=== PATIENT | female | born 1955 | race Caucasian/White ===

== ENCOUNTER 2023-07-04 20:30 | Observation (INO) | payer OTHER, SELFPAY ==
[2023-07-04] VITALS (24 sets, daily range): BP systolic 144–180; BP diastolic 82–106; PULSE 80–106; RESP 18–25; TEMP 36.1–36.8; O2SAT 89–100; BMI 25.8
--- NOTE | 2023-07-04 20:51 | XR_ITS ---
The [address] [address] Patient Name: CHAVEZ SHAIKH MRN: [id number] date: 1955 Sex: F Assigned Patient Location: ER Current Patient Location: ER Accession/Order Number: [id number] Exam Date: 07/04/2023 21:02 Report Date: 07/04/2023 21:14 At the request of: MIRTHA CARVAJAL Procedure: XR chest 1V EXAM: XR chest 1V HISTORY: Shortness of breath for one day. COMPARISON: None. TECHNIQUE: AP upright portable chest x-ray FINDINGS: The heart is not enlarged and the vasculature is not distended. There is slight haziness at the right lung base suggest a very small amount of atelectasis or infiltrate. The right upper and the left lung are clear, there is no evidence of an effusion or pneumothorax. The osseous structures are grossly intact. XR/XR chest 1V IMPRESSION: Slight haziness is seen at the right lung base. This may be chronic in nature or indicative of very early atelectasis or infiltrate. There is no other evidence of a focal infiltrate or cardiac decompensation. Direct comparison with a previous study is recommended to verify stability of these findings. A follow-up study after appropriate therapy is also recommended. Electronically authenticated by: RHETT TREVINO Date: 07/04/2023 21:14
--- NOTE | 2023-07-04 20:51 | ECG_ITS ---
The [facility] Test Date: 2023-07-04 Pat Name: CHAVEZ SHAIKH Department: Room: - Gender: Female Director Government: : 1955 Requested By: HARLEEN DELGADILLO Order Number: [id number] Reading MD: LINDA BULL Measurements Intervals [place] Rate: 85 P: 90 SC: 180 QRS: -6 QRSD: 82 T: 69 QT: 364 QTc: 406 Interpretive Statements 1100 Sinus rhythm 1470 with occasional supraventricular premature complexes 2420 RSR (QR) in lead V1/V2, consistent with right ventricular conduction delay 0102 ARTIFACT PRESENT 9140 abnormal rhythm ECG No previous ECG available for comparison Electronically Signed On 07-05-2023 7:11:35 EST by LINDA BULL
--- NOTE | 2023-07-04 20:54 | ED_ITS ---
HPI - SOB/Dyspnea General Chief Complaint: Shortness of Breath/Dyspnea Stated Complaint: shortness of breath Time Seen by Provider: 07/04/23 20:47 Source: patient Mode of arrival: Wheelchair History of Present Illness HPI Narrative: Patient is a very pleasant 68-year-old female who presents to the emergency department for the evaluation of increasing shortness of breath over the last several hours. states that last week she had an episode where she was feeling short of breath and seemed as though she may be coming down with a cold, she had an episode of emesis and felt better. She has had no fevers, chills, chest pain. No persistent vomiting today. She is noted to be borderline hypoxic and wheezing with accessory muscle use at initial interview. She states she smokes half a pack of cigarettes daily, no history of heart or lung problems, she takes no medications daily. Related Data Previous Rx's Medication Instructions Recorded cefdinir 300 mg capsule 600 mg (2 x 300 mg) PO DAILY #20 07/05/23 caps prednisone 20 mg tablet 60 mg (3 x 20 mg) PO DAILY #12 tabs 07/05/23 Allergies Allergy/AdvReac Type Severity Reaction Status Date / Time No Known Drug Allergies Allergy Verified 07/04/23 20:44 Review of Systems ROS Constitutional Denies: fever or chills Ears, nose, mouth, and throat Denies: throat pain or nasal congestion Cardiovascular Denies: chest pain Respiratory Reports: shortness of breath and cough; Denies: change in phlegm color or coughing up blood Gastrointestinal Reports: vomiting; Denies: nausea or diarrhea Musculoskeletal Denies: back pain Integumentary/Breast Denies: rash Neurological Denies: headache Hematologic/Lymphatic Denies: easy bruising or easy bleeding PFSH PFS Medical History (Updated 07/04/23 @ 23:57 by Mecca Jang) Cataracts, bilateral ?H26.9 - Unspecified cataract (ICD-10) Family History (Updated 07/04/23 @ 23:49 by Mecca Jang) Father Family history of diabetes mellitus Other Family history of CHF (congestive heart failure) Family history of COPD (chronic obstructive pulmonary disease) Social History (Updated 07/04/23 @ 23:51 by Mecca Jang) Within the past year, how often did you have a drink containing alcohol: monthly or less Within the past year, how many standard drinks containing alcohol did you have on a typical day: 1 or 2 Within the past year, how often did you have six or more drinks on one occasion: never Total score: 0 Score interpretation: A score less than 3 is consistent with normal alcohol consumption. 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 Highest level of school completed/degree received: high school graduate Are you now , , , , never or living with a partner: In a typical week, how many times do you talk on the telephone with family, friends, or neighbors: 3 or more times per week How often do you get together with friends or relatives: 3 or more times per week How often do you attend jew or samaritan services: 1-3 times per year Little interest or pleasure in doing things: not at all Feeling down, depressed, or hopeless: not at all Feel stressed/tense/nervous/anxious/difficulty sleeping: not at all Do you think of yourself as: straight/heterosexual Gender Identity: female Exam Narrative Exam Narrative: Gen.: Awake, alert, in no distress Head: Normocephalic, atraumatic ENT: Moist mucous membranes Respiratory: No respiratory distress, Able to speak in full sentences, diminished lung sounds globally with expiratory wheezing and retractions noted Cardio: Regular rate and rhythm Extremities: Moves extremities equally, no Pedal edema Psych: Normal mood and affect Neuro: No focal neuro deficit Skin: Warm, dry, intact Constitutional Vital Signs, click to edit/add: Last Vital Signs Temp 97.6 F 07/05/23 05:00 Pulse 105 H 07/05/23 10:40 Resp 16 07/05/23 10:40 BP 143/74 H 07/05/23 05:00 Pulse Ox 93 L 07/05/23 11:01 O2 Del Method Room Air 07/05/23 11:01 O2 Flow Rate 0.5 07/05/23 10:01 Course Vital Signs Vital signs: Vital Signs Temperature 97 F L 07/04/23 20:36 Pulse Rate 91 H 07/04/23 20:36 Respiratory Rate 20 07/04/23 20:36 Pulse Oximetry 92 L 07/04/23 20:36 Oxygen Delivery Method Room Air 07/04/23 20:36 Temperature 97.6 F 07/05/23 05:00 Pulse Rate 105 H 07/05/23 10:40 Respiratory Rate 16 07/05/23 10:40 Blood Pressure 143/74 H 07/05/23 05:00 Pulse Oximetry 93 L 07/05/23 11:01 Oxygen Delivery Method Room Air 07/05/23 11:01 Oxygen Delivery Flow Rate 0.5 07/05/23 10:01 MDM - SOB/Dyspnea MDM Narrative Medical decision making narrative: Given breathing treatments with improvement and was placed on oxygen by nasal cannula just for comfort while in the ER. She was given IV fluids and Solu- Medrol. Lab studies are within normal limits including D-dimer, BNP and troponin. Chest x-ray with questionable right lower lobe atelectasis versus early infiltrate. Patient with no complaints of chest pain in the ER. She was taken off of oxygen by nasal cannula to evaluate her oxygen saturation. She would like to try to go home if possible. After ambulating down the ham, patient's oxygen levels dropped to 88 to 89% on room air and she became tachycardic and winded. I discussed with her that she may not be successful with home treatment given that she is becoming hypoxic with ambulation. She is agreeable to staying. She is placed back on a nasal cannula and blood cultures, RSV were ordered at the request of hospitalist service. Patient treated with IV azithromycin and Rocephin. She will be admitted to [facility], with telemetry for observation overnight. Medical Records Attestation: I reviewed the patient's medical records. Lab Data Attestation: I reviewed the patient's lab results. Labs: Lab Results 07/04/23 07/04/23 Range/Units 21:00 21:24 WBC 8.6 (4.0-11.0) 10^3/uL RBC 4.52 (4.20-5.40) 10^6/uL Hgb 14.3 (12.0-16.0) g/dL Hct 43.3 (36.0-48.0) % MCV 95.8 (81.0-99.0) fL MCH 31.6 (26.7-34.0) pg MCHC 33.0 (29.9-35.2) g/dL RDW 12.5 (11.0-15.0) % Plt Count 257 (150-450) 10^3/uL MPV 10.3 (9.5-13.5) fL Neut % (Auto) 65.9 (43.0-75.0) % Lymph % (Auto) 23.0 (20.5-60.0) % Hayes % (Auto) 7.1 (1.7-12.0) % Eos % (Auto) 2.7 (0.9-7.0) % Baso % (Auto) 1.2 (0.2-2.0) % Neut # (Auto) 5.7 (1.4-6.5) 10^3/uL Lymph # (Auto) 2.0 (1.2-3.8) 10^3/uL Hayes # (Auto) 0.6 (0.3-0.8) 10^3/uL Eos # (Auto) 0.2 (0.0-0.7) 10^3/uL Baso # (Auto) 0.1 (0.0-0.1) 10^3/uL Abs Immat Gran (auto) 0.01 (0.00-0.03) 10^3/uL Imm/Tot Granulo (auto) 0.1 (0.0-0.5) % PT 9.7 (9.0-11.6) sec INR <0.93 APTT 25.6 (22.3-36.2) sec D-Dimer 0.23 (<=0.59) mg/L FEU VBG pH 7.351 (7.330-7.430) VBG pCO2 51.2 (40.0-52.0) mmHg Sodium 136 (136-145) mmol/L Potassium 4.0 (3.5-5.1) mmol/L Chloride 102 (98-107) mmol/L Carbon Dioxide 29.0 (21.0-32.0) mmol/L Anion Gap 9.0 BUN 14.0 (7.0-18.0) mg/dL Creatinine 0.66 (0.55-1.02) mg/dL Est GFR ( Amer) >60 (>=60) Est GFR (Non-Af Amer) >60 (>=60) BUN/Creatinine Ratio 21.2 Glucose 124 H (74-106) mg/dL Calcium 9.5 (8.5-10.1) mg/dL Total Bilirubin 0.4 (0.2-1.0) mg/dL AST 12 L (15-37) U/L ALT 16 (14-59) U/L Alkaline Phosphatase 121 H (46-116) U/L Troponin I High Sens 5.3 (4.0-51.3) pg/mL NT-Pro-B Natriuret Pep 84.0 (<=900.0) pg/mL Total Protein 7.1 (6.4-8.2) g/dL Albumin 3.6 (3.4-5.0) g/dL Globulin 3.5 g/dL Albumin/Globulin Ratio 1.0 Influenza Type A Ag Negative Influenza Type B Ag Negative RSV Antigen Not detected (NOT DETECTE) SARS-CoV-2 Ag (CV2AG) Negative (NEGATIVE) Imaging Data Chest x-ray: Attestation: I have reviewed the pertinent imaging results. Radiologist's impression: Procedure: XR chest 1V EXAM: XR chest 1V HISTORY: Shortness of breath for one day. COMPARISON: None. TECHNIQUE: AP upright portable chest x-ray FINDINGS: The heart is not enlarged and the vasculature is not distended. There is slight haziness at the right lung base suggest a very small amount of atelectasis or infiltrate. The right upper and the left lung are clear, there is no evidence of an effusion or pneumothorax. The osseous structures are grossly intact. IMPRESSION: Slight haziness is seen at the right lung base. This may be chronic in nature or indicative of very early atelectasis or infiltrate. There is no other evidence of a focal infiltrate or cardiac decompensation. Direct comparison with a previous study is recommended to verify stability of these findings. A follow-up study after appropriate therapy is also recommended. Electronically authenticated by: RHETT TREVINO Date: 07/04/2023 21:14 ECG Data Attestation: I personally reviewed and interpreted this ECG as follows: (Normal sinus rhythm at a rate of 85 with occasional PVC, no acute ST elevation. EKG reviewed by attending physician. Artifact noted.) ECG interpretation date: 07/04/23 Discharge Plan Discharge Chief Complaint: Shortness of Breath/Dyspnea Clinical Impression: Acute infective exacerbation of chronic obstructive airway disease, Community acquired pneumonia, Hypoxia Patient Disposition: Admitted as Observation Time of Disposition Decision: 22:22 Condition: Good Discharge Date/Time: 07/04/23 23:49
[2023-07-04] MEDS: IPRATROPIUM/ALBUTEROL SULFATE 3 ML AMPUL.NEB IH (21:05)
[2023-07-04] MEDS: ALBUTEROL SULFATE 2.5 MG/3 ML VIAL NEB IH (21:05)
[2023-07-04] MEDS: METHYLPREDNISOLONE SOD SUCC PF 125 MG/2 ML VIAL IVP (21:10)
[2023-07-04 21:17] LABS: PCO2 VBG 51.2 mmHg (40.0-52.0); pH VBG 7.351 (7.330-7.430)
[2023-07-04 21:18] LABS: Basophils Absolute Auto 0.1 10^3/uL (0.0-0.1); Basophils Percent Auto 1.2 % (0.2-2.0); Eosinophils Absolute Auto 0.2 10^3/uL (0.0-0.7); Eosinophils Percent Auto 2.7 % (0.9-7.0); Hematocrit 43.3 % (36.0-48.0); Hemoglobin 14.3 g/dL (12.0-16.0); Immature Granulocytes Abs Auto 0.01 10^3/uL (0.00-0.03); Immature Granulocytes Pct Auto 0.1 % (0.0-0.5); Mean Corpuscular Hemoglobin 31.6 pg (26.7-34.0); Mean Corpuscular Volume 95.8 fL (81.0-99.0); Mean Platelet Volume 10.3 fL (9.5-13.5); Monocytes Absolute Auto 0.6 10^3/uL (0.3-0.8); Monocytes Percent Auto 7.1 % (1.7-12.0); Neutrophils Absolute Auto 5.7 10^3/uL (1.4-6.5); Neutrophils Percent Auto 65.9 % (43.0-75.0); Platelet Count 257 10^3/uL (150-450); Red Blood Count 4.52 10^6/uL (4.20-5.40); Red Cell Distribution Width 12.5 % (11.0-15.0); White Blood Count 8.6 10^3/uL (4.0-11.0)
[2023-07-04 21:34] LABS: D Dimer 0.23 mg/L FEU (<=0.59); Partial Thromboplastin Time 25.6 sec (22.3-36.2); Prothrombin Time 9.7 sec (9.0-11.6)
[2023-07-04 21:35] LABS: Alanine Aminotransferase 16 U/L (14-59); Albumin Level 3.6 g/dL (3.4-5.0); Alkaline Phosphatase 121 U/L (46-116); Aspartate Amino Transferase 12 U/L (15-37); BUN Creatinine Ratio 21.2; Bilirubin Total 0.4 mg/dL (0.2-1.0); Calcium 9.5 mg/dL (8.5-10.1); Chloride 102 mmol/L (98-107); Estimated GFR (African America >60 (>=60); Estimated GFR (Non-African Ame >60 (>=60); Globulin 3.5 g/dL; Glucose 124 mg/dL (74-106); INR <0.93; Sodium 136 mmol/L (136-145); Total Protein 7.1 g/dL (6.4-8.2)
[2023-07-04 21:41] LABS: Troponin I High Sensitivity 5.3 pg/mL (4.0-51.3)
[2023-07-04 21:46] LABS: Influenza Virus A Antigen Negative; Influenza Virus B Antigen Negative; Internal Control Within Normal Limits; SARS-CoV-2 Ag NEGATIVE (NEGATIVE)
[2023-07-04 22:39] LABS: Internal Control Within Normal Limits; Respiratory Syncytial Virus Not Detected (NOT DETECTE)
[2023-07-04] MEDS: CEFTRIAXONE 1,000 MG in 0.9 % SODIUM CHLORIDE 50 ML 100 MG IV (22:52)
[2023-07-04] MEDS: AZITHROMYCIN 500 MG in 0.9 % SODIUM CHLORIDE 250 ML 250 MG IV (23:23)
[2023-07-05] VITALS (15 sets, daily range): BP systolic 143; BP diastolic 74; PULSE 94–126; RESP 16–18; TEMP 36.4; O2SAT 93–97
[2023-07-05] MEDS: IPRATROPIUM/ALBUTEROL SULFATE 3 ML AMPUL.NEB IH ×4 (00:23→10:38)
[2023-07-05 00:47] LABS: Glucometer 155 mg/dL (74-106)
--- NOTE | 2023-07-05 04:00 | RESP.RT ---
decreased down to 1L
[2023-07-05 04:30] LABS: Hematocrit 42.1 % (36.0-48.0); Hemoglobin 13.7 g/dL (12.0-16.0); Mean Corpuscular HGB Conc 32.5 g/dL (29.9-35.2); Mean Corpuscular Volume 95.2 fL (81.0-99.0); Mean Platelet Volume 10.1 fL (9.5-13.5); PCO2 VBG 48.9 mmHg (40.0-52.0); Platelet Count 252 10^3/uL (150-450); Red Blood Count 4.42 10^6/uL (4.20-5.40); Red Cell Distribution Width 12.6 % (11.0-15.0); White Blood Count 9.9 10^3/uL (4.0-11.0); pH VBG 7.344 (7.330-7.430)
[2023-07-05 04:39] LABS: Anion Gap 13.3; BUN Creatinine Ratio 11.5; Calcium 9.4 mg/dL (8.5-10.1); Carbon Dioxide 26.3 mmol/L (21.0-32.0); Chloride 101 mmol/L (98-107); Estimated GFR (African America >60 (>=60); Estimated GFR (Non-African Ame 53 (>=60); Glucose 206 mg/dL (74-106); Potassium 3.6 mmol/L (3.5-5.1); Sodium 137 mmol/L (136-145)
[2023-07-05] MEDS: METHYLPREDNISOLONE SOD SUCC PF 40 MG/ML VIAL IVP (05:07)
--- NOTE | 2023-07-05 09:00 | CM.NOTE ---
Rounds made with Dr. Pepe, will attempt to wean off oxygen today. Pt up ambulatory in room. No discharge needs identified. Pt lives at home with , no devices used with ambulation.
--- NOTE | 2023-07-05 09:54 | PM.HP ---
H&P: HPI History of Present Illness Chief complaint: shortness of breath Narrative: Patient presented to the emergency with increasing shortness of breath. Found to have acute exacerbation of COPD right lower lobe pneumonia. Initially hypoxic in ER with ambulation. She is improved this morning. Review of Systems ROS Status of ROS 10 or more systems reviewed and unremarkable except as noted in history and below [facility] Medical History (Updated 07/04/23 @ 23:57 by Mecca Jang) Cataracts, bilateral ?H26.9 - Unspecified cataract (ICD-10) Family History (Updated 07/04/23 @ 23:49 by Mecca Jang) Father Family history of diabetes mellitus Other Family history of CHF (congestive heart failure) Family history of COPD (chronic obstructive pulmonary disease) Social History (Updated 07/04/23 @ 23:51 by Mecca Jang) Within the past year, how often did you have a drink containing alcohol: monthly or less Within the past year, how many standard drinks containing alcohol did you have on a typical day: 1 or 2 Within the past year, how often did you have six or more drinks on one occasion: never Total score: 0 Score interpretation: A score less than 3 is consistent with normal alcohol consumption. 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 Highest level of school completed/degree received: high school graduate Are you now , , , , never or living with a partner: In a typical week, how many times do you talk on the telephone with family, friends, or neighbors: 3 or more times per week How often do you get together with friends or relatives: 3 or more times per week How often do you attend jain or druze services: 1-3 times per year Little interest or pleasure in doing things: not at all Feeling down, depressed, or hopeless: not at all Feel stressed/tense/nervous/anxious/difficulty sleeping: not at all Do you think of yourself as: straight/heterosexual Gender Identity: female Meds Home Medications and Allergies Home Medications Medication Instructions Recorded Confirmed Type cefdinir 300 mg capsule 600 mg (2 x 300 mg) PO DAILY #20 07/05/23 Rx caps prednisone 20 mg tablet 60 mg (3 x 20 mg) PO DAILY #12 tabs 07/05/23 Rx Allergies Allergy/AdvReac Type Severity Reaction Status Date / Time No Known Drug Allergies Allergy Verified 07/04/23 20:44 Exam Constitutional Vital Signs, click to edit/add: Last Vital Signs Temp 97.6 F 07/05/23 05:00 Pulse 126 H 07/05/23 08:00 Resp 16 07/05/23 08:00 BP 143/74 H 07/05/23 05:00 Pulse Ox 97 07/05/23 07:22 O2 Del Method Nasal Cannula 07/05/23 07:22 O2 Flow Rate 0.5 07/05/23 07:22 Documenting provider has reviewed patient's vital signs: yes Common normals: no apparent distress Chest Common normals: inspection of chest normal Respiratory Common normals: normal respiratory effort Auscultation: rhonchi Cardio Common normals: regular rate and regular rhythm GI Common normals: Normal to inspection, nondistended, normoactive bowel sounds present Results Labs Labs: Short CBC 07/04/23 07/05/23 Range/Units 21:00 04:20 WBC 8.6 9.9 (4.0-11.0) 10^3/uL Hgb 14.3 13.7 (12.0-16.0) g/dL Hct 43.3 42.1 (36.0-48.0) % Plt Count 257 252 (150-450) 10^3/uL BMP 07/04/23 07/05/23 21:00 04:20 Sodium 136 137 Potassium 4.0 3.6 Chloride 102 101 Carbon Dioxide 29.0 26.3 BUN 14.0 12.0 Creatinine 0.66 1.04 H Glucose 124 H 206 H Calcium 9.5 9.4 Liver Function 07/04/23 Range/Units 21:00 Total Bilirubin 0.4 (0.2-1.0) mg/dL AST 12 L (15-37) U/L ALT 16 (14-59) U/L Alkaline Phosphatase 121 H (46-116) U/L Albumin 3.6 (3.4-5.0) g/dL ABG ABG results: 07/04/23 07/05/23 21:00 04:20 VBG pH 7.351 7.344 VBG pCO2 51.2 48.9 Assessment and Plan Assessment and Plan (1) Acute infective exacerbation of chronic obstructive airway disease: (2) Community acquired pneumonia: Plan Sinus tachycardia, respiratory distress, acute hypoxia secondary to right lower lobe pneumonia with community-acquired pneumonia causing an acute exacerbation of COPD. She is able to be weaned off her supplemental oxygen at rest. She was she she does with ambulation. She does feel much improved with breathing treatments and IV medications so far. If she is improved later on this morning with no further need for supplemental oxygen with or without ambulation she will be discharged home in improving condition. Medications see list. Follow-up with your PCP within the next week.
--- NOTE | 2023-07-06 14:03 | CM.DCFOLLOWU ---
Person spoke with:patient How are you feeling? well How is your pain? no pain Did you understand your discharge instructions? yes Do you have any questions about your discharge instructions? no Were you given any prescriptions at discharge? yes Were you able to get your prescriptions filled? yes Do you understand how to take your medications as ordered? yes Do you have any questions about your follow up appointment and do you plan to keep your follow up appointment? no questions, follow up with Per was today and all is good Is there anything else that you would like to discuss? no Questions/Comments/Concerns/Other:
== END 2023-07-05 11:28 | disposition home or self-care (01) ==
LOC: ER 22:26 → MS 23:44
PROVIDERS: Physician Assistant; Registered Nurse; Admitting Provider Family Medicine; Emergency Provider Internal Medicine; PCP Family Medicine; Visit Provider Family Medicine
DX: J18.9 Pneumonia, unspecified organism (principal); J44.0 Chronic obstructive pulmonary disease with (acute) lower respiratory infection; J44.1 Chronic obstructive pulmonary disease with (acute) exacerbation; R09.02 Hypoxemia; F17.210 Nicotine dependence, cigarettes, uncomplicated; Z20.822 Contact with and (suspected) exposure to COVID-19; R00.0 Tachycardia, unspecified; R06.03 Acute respiratory distress
CPT/HCPCS: 36415; 71045; 80048; 80053; 82800; 83880; 84484; 85025; 85027; 85378; 85610; 85730; 87040; 87420; 87635; 87798; 87804; 87811; 93005; 94640; 94667; 94668; 94761; 96365; 96375; 96376; 99285; G0378; J0456; J0696; J2920; J2930

== ENCOUNTER 2024-07-27 11:42 | Emergency (ER) | payer MEDICARE, SELFPAY ==
[2024-07-27 11:45] VITALS: BP 174/95; PULSE 100; TEMP 36.6; O2SAT 92; BMI 25.1
--- NOTE | 2024-07-27 11:54 | XR_ITS ---
The [address] [address] Patient Name: CHAVEZ SHAIKH MRN: [id number] date: 1955 Sex: F Assigned Patient Location: ER Current Patient Location: ER Accession/Order Number: [id number] Exam Date: 07/27/2024 12:00 Report Date: 07/27/2024 12:48 At the request of: ISABELLA ARROYO Procedure: XR chest 2V EXAMINATION: XR chest 2V HISTORY: sob COMPARISON: 07/04/2023 TECHNIQUE: PA and lateral FINDINGS: LUNGS: No significant pulmonary parenchymal abnormalities. VASCULATURE: No increased pulmonary vasculature. PLEURA: No pneumothorax, effusion, or pleural thickening. CARDIAC: No cardiomegaly or cardiac silhouette abnormality. MEDIASTINUM: No visible mass or adenopathy. BONES: No fracture or visible bone lesion. OTHER: Negative. XR/XR chest 2V IMPRESSION: No acute cardiopulmonary process Electronically authenticated by: AISHA GARNER Date: 07/27/2024 12:48
[2024-07-27 11:57] VITALS: O2SAT 95
--- OUTSIDE RECORDS SUMMARY | 2024-07-27 12:00 | XMS_ITS | CCD ---
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; Translations: [OTH MOLECULAR SPECTROSCOPIST CURRENT DRUG THERAPY] Onset: 06-08-2021 Episodic Other aftercare (4 sources) Long-term current use of drug therapy; Translations: [Other care home (current) drug therapy] Onset: 03-22-2024 03-22-2024 Episodic Other nutritional; endocrine; and metabolic disorders (1 source) Overweight; Translations: [OVERWEIGHT] Onset: 06-08-2021 Episodic Other nutritional; endocrine; and metabolic disorders (1 source) Body mass index (BMI) 25.0-25.9, adult; Translations: [BODY MASS INDEX BMI 25.0-25.9 ADULT] Onset: 06-08-2021 Episodic Other screening for suspected conditions (not mental disorders or infectious disease) (4 sources) Patient encounter status; Translations: [Encounter for screening for lipoid disorders] Onset: 03-22-2024 03-22-2024 Episodic Past or Other Problems Problem Classification Problem Date Documented Da te Episodic/Chronic Mood disorders (2 sources) Mood disorders Onset: 03-21-2024 03-22-2024 Pneumonia (except that caused by tuberculosis or sexually transmitted disease) (3 sources) Pneumonia; Translations: [Pneumonia, unspecified organism] Onset: 07-06-2023 Resolved: 03-22-2024 03-22-2024 Episodic Residual codes; unclassified (3 sources) Tobacco user; Translations: [Tobacco use] Onset: 07-06-2023 07-06-2023 Episodic Results Test Name Value Interpretation Reference Range Facil ity CBC AUTO DIFFon 06-03-2021 BASO # 0.1 103/ul Normal 0.0-0.1 [facility] Comment on above: Performed By: #### C BC #### [facility] [address] [address] [address] Lenard Wing Basophils/100 WBC (Bld) 1.5 % Normal 0.2-2.0 [facility] Comment on above: Performed By: #### C BC #### [facility] [address] [place] [address] Dr. Lenard Wing EO # 0.2 103/ul Normal 0.0-0.7 [facility] Comment on above: Performed By: #### C BC #### [facility] [address] [place] [address] Dr. Lenard Wing Eosinophils/100 WBC (Bld) 2.9 % Normal 0.9-7.0 [facility] Comment on above: Performed By: #### C BC #### [facility] [address] [place] [address] Dr. Lenard Wing Erythrocyte distribution width (RBC) [Ratio] 13.2 % Normal 11.0-15.0 [facility] Comment on above: Performed By: #### C BC #### [facility] [address] [place] [address] Dr. Lenard Wing Hematocrit (Bld) [Volume fraction] 42.9 % Normal 36.0-48.0 [facility] Comment on above: Performed By: #### C BC #### [facility] [address] [place] [address] Dr. Lenard Wing Hemoglobin (Bld) [Mass/Vol] 14.0 g/dL Normal 12.0-16.0 [facility] Comment on above: Performed By: #### C BC #### [facility] [address] [place] [address] Dr. Lenard Wing IG # 0.02 10e3/ul Normal 0.00-0.03 [facility] Comment on above: Performed By: #### C BC #### [facility] [address] [place] [address] Dr. Lenard Wing IG % 0.3 % Normal 0.0-0.5 [facility] Comment on above: Performed By: #### C BC #### [facility] [address] [place] [address] Dr. Lenard Wing LYMPH # 2.0 103/ul Normal 1.2-3.8 [facility] Comment on above: Performed By: #### C BC #### [facility] [address] [place] [address] Dr. Lenard Wing Lymphocytes/100 WBC (Bld) 26.7 % Normal 20.5-60.0 [facility] Comment on above: Performed By: #### C BC #### [facility] [address] [place] [address] Dr. Lenard Wing MANUAL DIFF REQ NO Normal [facility] Comment on above: Performed By: #### C BC #### [facility] [address] [place] [address] Dr. Lenard Wing MCH (RBC) [Entitic mass] 31.3 pg Normal 26.7-34.0 [facility] Comment on above: Performed By: #### C BC #### [facility] [address] [place] [address] Dr. Lenard Wing MCHC (RBC) [Mass/Vol] 32.6 g/dL Normal 29.9-35.2 [facility] Comment on above: Performed By: #### C BC #### [facility] [address] [place] [address] Dr. Lenard Wing MCV (RBC) [Entitic vol] 96.0 fL Normal 81.0-99.0 [facility] Comment on above: Performed By: #### C BC #### [facility] [address] [place] [address] Dr. Lenard Wing MONO # 0.5 103/ul Normal 0.3-0.8 [facility] Comment on above: Performed By: #### C BC #### [facility] [address] [address] [address] Lenard Wing Monocytes/100 WBC (Bld) 6.8 % Normal 1.7-12.0 [facility] Comment on above: Performed By: #### C BC #### [facility] [address] [address] [address] Lenard Wing NEUT # 4.7 103/ul Normal 1.4-6.5 [facility] Comment on above: Performed By: #### C BC #### [facility] [address] [place] [address] Dr. Lenard Wing Neutrophils/100 WBC (Bld) 61.8 % Normal 43.0-75.0 [facility] Comment on above: Performed By: #### C BC #### [facility] [address] [place] [address] Dr. Lenard Wing Platelet mean volume (Bld) [Entitic vol] 10.9 fL Normal 9.5-13.5 [facility] Comment on above: Performed By: #### C BC #### [facility] [address] [place] [address] Dr. Lenard Wing PLT 253 103/ul Normal 150-450 [facility] Comment on above: Performed By: #### C BC #### [facility] [address] [place] [address] Dr. Lenard Wing RBC 4.47 106/ul Normal 4.20-5.40 [facility] Comment on above: Performed By: #### C BC #### [facility] [address] [place] [address] Dr. Lenard Wing WBC 7.5 103/ul Normal 4.0-11.0 [facility] Comment on above: Performed By: #### C BC #### [facility] [address] [place] [address] Dr. Lenard Wing LIPID PROFILEon 06-03-2021 CHOL-HDL RATIO NORM SEE BELOW Normal [facility] Comment on above: Result Comment: 3.3 - 4.4 LOW RISK 4.4 - 7.1 AVERAGE RISK 7.1 - 11.0 MODERATE RISK >11.0 HIGH RISK Performed By: #### T SH, LIVER, BMP, LIPID #### [facility] [address] [address] [address] Lenard Wing Cholesterol [Mass/Vol] 138 mg/dL Normal <=200 [facility] Comment on above: Performed By: #### T SH, LIVER, BMP, LIPID #### [facility] [address] [address] [address] Lenard Wing Cholesterol in HDL [Mass/Vol] 99 mg/dL Normal [facility] Comment on above: Performed By: #### T SH, LIVER, BMP, LIPID #### [facility] [address] [place] [address] Dr. Lenard Wing Cholesterol in LDL [Mass/Vol] 33.6 mg/dL Normal [facility] Comment on above: Performed By: #### T SH, LIVER, BMP, LIPID #### [facility] [address] [address] [address] Lenard Wing Cholesterol.total/C holesterol in HDL [Mass ratio] 1.4 {ratio} Normal [facility] Comment on above: Performed By: #### T SH, LIVER, BMP, LIPID #### [facility] [address] [address] [address] Lenard Wing HDL NORMAL > or = 60 mg/dl - LO W CARDIOVASCULAR RISK <40 mg/dl - HIGH CARDIOVASCULAR RISK Normal [facility] Comment on above: Performed By: #### T SH, LIVER, BMP, LIPID #### [facility] [address] [place] [address] Dr. Lenard Wing LDL CALC NORMAL SEE BELOW Normal [facility] Comment on above: Result Comment: <100 mg/dl OPTIMAL 100 - 129 mg/dl NEAR OR ABOVE OPTIMAL 130 - 159 mg/dl BORDERLINE HIGH 160 - 189 mg/dl HIGH >190 mg/dl VERY HIGH Performed By: #### T SH, LIVER, BMP, LIPID #### [facility] [address] [address] [address] Lenard Wing Triglyceride [Mass/Vol] 27 mg/dL Normal <=150 [facility] Comment on above: Performed By: #### T SH, LIVER, BMP, LIPID #### [facility] [address] [address] [address] Lenard Wing VLDL CALC 5.4 mg/dL Normal [facility] Comment on above: Performed By: #### T SH, LIVER, BMP, LIPID #### [facility] [address] [address] [address] Lenard Wing LIVER PROFILEon 06-03-2021 Albumin [Mass/Vol] 3.6 g/dL Normal 3.5-5.0 [facility] Comment on above: Performed By: #### T SH, LIVER, BMP, LIPID #### [facility] [address] [place] [address] Dr. Lenard Wing Albumin/Globulin [Mass ratio] 1.2 {ratio} Normal [facility] Comment on above: Performed By: #### T SH, LIVER, BMP, LIPID #### [facility] [address] [place] [address] Dr. Lenard Wing ALP [Catalytic activity/Vol] 105 U/L Normal 38-126 [facility] Comment on above: Performed By: #### T SH, LIVER, BMP, LIPID #### [facility] [address] [place] [address] Dr. Lenard Wing ALT [Catalytic activity/Vol] 14 U/L Normal 9-52 [facility] Comment on above: Performed By: #### T SH, LIVER, BMP, LIPID #### [facility] [address] [place] [address] Dr. Lenard Wing AST [Catalytic activity/Vol] 15 U/L Normal 14-36 [facility] Comment on above: Performed By: #### T SH, LIVER, BMP, LIPID #### [facility] [address] [place] [address] Dr. Lenard Wing BILI, CONJUGATED 0.2 mg/dL Normal 0.0-0.3 [facility] Comment on above: Performed By: #### T SH, LIVER, BMP, LIPID #### [facility] [address] [address] [address] Lenard Wing Bilirubin [Mass/Vol] 0.7 mg/dL Normal 0.2-1.3 [facility] Comment on above: Performed By: #### T SH, LIVER, BMP, LIPID #### [facility] [address] [address] [address] Lenard Wing Globulin (S) [Mass/Vol] 3.1 g/dL Normal [facility] Comment on above: Performed By: #### T SH, LIVER, BMP, LIPID #### [facility] [address] [place] [address] Dr. Lenard Wing Protein [Mass/Vol] 6.7 g/dL Normal 6.1-8.2 [facility] Comment on above: Performed By: #### T SH, LIVER, BMP, LIPID #### [facility] [address] [place] [address] Dr. Lenard Wing PROF CHEM 8 (BAS METB)on Anion gap [Moles/Vol] 12.9 mmol/L Normal [facility] Comment on above: Performed By: #### T SH, LIVER, BMP, LIPID #### [facility] [address] [place] [address] Dr. Lenard Wing Calcium [Mass/Vol] 9.2 mg/dL Normal 8.4-10.2 [facility] Comment on above: Performed By: #### T SH, LIVER, BMP, LIPID #### [facility] [address] [place] [address] Dr. Lenard Wing Chloride [Moles/Vol] 105 mmol/L Normal 98-107 [facility] Comment on above: Performed By: #### T SH, LIVER, BMP, LIPID #### [facility] [address] [place] [address] Dr. Lenard Wing CO2 [Moles/Vol] 29.5 mmol/L Normal 22.0-30.0 [facility] Comment on above: Performed By: #### T SH, LIVER, BMP, LIPID #### [facility] [address] [place] [address] Dr. Lenard Wing Creatinine [Mass/Vol] 0.61 mg/dL Normal 0.52-1.04 [facility] Comment on above: Performed By: #### T SH, LIVER, BMP, LIPID #### [facility] [address] [address] [address] Lenard Wing EGFR-AF ZAMBIAN >60 Normal >=60 [facility] Comment on above: Performed By: #### T SH, LIVER, BMP, LIPID #### [facility] [address] [address] [address] Lenard Wing EGFR-NON AF ZAMBIAN >60 Normal >=60 [facility] Comment on above: Performed By: #### T SH, LIVER, BMP, LIPID #### [facility] [address] [address] [address] Lenard Wing Glucose [Mass/Vol] 86 mg/dL Normal 74-106 [facility] Comment on above: Performed By: #### T SH, LIVER, BMP, LIPID #### [facility] [address] [address] [address] Lenard Wing Potassium [Moles/Vol] 4.4 mmol/L Normal 3.4-5.0 [facility] Comment on above: Performed By: #### T SH, LIVER, BMP, LIPID #### [facility] [address] [address] [address] Lenard Wing Sodium [Moles/Vol] 143 mmol/L Normal 137-145 [facility] Comment on above: Performed By: #### T SH, LIVER, BMP, LIPID #### [facility] [address] [address] [address] Lenard Wing Urea nitrogen [Mass/Vol] 15.0 mg/dL Normal 7.0-17.0 [facility] Comment on above: Performed By: #### T SH, LIVER, BMP, LIPID #### [facility] [address] [address] [address] Lenard Wing Urea nitrogen/Creatinine [Mass ratio] 24.6 mg/mg Normal [facility] Comment on above: Performed By: #### T SH, LIVER, BMP, LIPID #### [facility] [address] [place], [place] [address] Dr. Lenard Wing TSHon 06-03-2021 TSH 1.018 uIU/mL Normal 0.470-4.680 [facility] Comment on above: Performed By: #### T SH, LIVER, BMP, LIPID #### [facility] [address] [place], [place] [address] Dr. Lenard Wing TSH RANGE SEE BELOW Normal [facility] Comment on above: Result Comment: <0.3 4 UIU/ml HYPERTHYROID 0.34-5.60 UIU/ml EUTHYROID >5.60 UIU/ml HYPOTHYROID Performed By: #### T SH, LIVER, BMP, LIPID #### [facility] [address] [address] [address] Lenard Wing Vital Signs Date Time Vital Sign Value Performing Clinician Faci lity 03-22-2024 13:05-0400 Body height 170.2 cm Harleen Delgadillo MD Work Phone: [facility] 03-22-2024 13:05-0400 Body mass index (BMI) [Ratio] 25.69 kg/m2 Harleen Delgadillo MD Work Phone: [facility] 03-22-2024 13:05-0400 Body temperature 96.69 [degF] Harleen Delgadillo MD Work Phone: [facility] 03-22-2024 13:05-0400 Body weight 74.39 kg Harleen Delgadillo MD Work Phone: [facility] 03-22-2024 13:05-0400 Diastolic blood pressure 84 mm[Hg] Harleen Delgadillo MD Work Phone: [facility] 03-22-2024 13:05-0400 Heart rate 83 /min Harleen Delgadillo MD Work Phone: [facility] 03-22-2024 13:05-0400 SaO2% (BldA) [Mass fraction] 95 % Harleen Delgadillo MD Work Phone: [facility] 03-22-2024 13:05-0400 Systolic blood pressure 150 mm[Hg] Harleen Delgadillo MD Work Phone: [facility] Encounters Encounter Date Encounter Type Care Provider Facility Start: 03-22-2024 End: 03-22-2024 Bamdiptio flowsheet Harleen Delgadillo MD Work Phone: [facility] Start: 03-22-2024 End: 03-22-2024 Bambo flowsheet Harleen Delgadillo MD Work Phone: [facility] Start: 03-22-2024 End: 03-22-2024 Patient encounter procedure Harleen Delgadillo MD Work Phone: [facility] Work Phone: Start: 03-22-2024 End: 03-22-2024 Postop follow up visit related to original px Harleen Delgadillo MD Work Phone: [facility] Comment on above: Medicare annual well ness visit, subsequent (Primary Dx); Lipid screening; Encounter for long-term (current) use of medications Start: 07-06-2023 End: 07-06-2023 ambulatory HARLEEN DELGADILLO Not Available Start: 06-08-2021 Encounter for genera l adult medical examination without abnormal findings DR HARLEEN DELGADILLO [facility] Start: 06-03-2021 End: 06-04-[address] HARLEEN DELGADILLO Facility:[facility] Start: 06-03-2021 End: 06-04-2021 Encounter for general adult medical examination without abnormal findings DR HARLEEN DELGADILLO Facility:[facility] Plan of Treatment Date Care Activity Detail Author Start: 03-25-2025 End: 03-25-2025 Patient encounter procedure 03/25/2025 1:00 PM EDT Office Visit [facility] [address] [place] [id number] Harleen Delgadillo MD [address] [place] [id number] [facility] Start: 07-06-2024 Screening for malign ant neoplasm of colon Colorectal Cancer Screening [facility] Comment on above: Postponed from 06/05 (Patient Refused) Start: 07-02-2024 Screening for malign ant neoplasm of breast Mammogram [facility] Comment on above: Postponed from 06/05 (Patient Refused) Start: 03-22-2024 End: 03-22-2025 Basic metabolic 1998 panel - Serum or Plasma Basic metabolic panel Lab Routine Encounter for long-term (current) use of medications Expected: 03/22/2024 (Approximate), Expires: 03/22/2025 [facility] Work Phone: Comment on above: Expected: 03/22/2024 (Approximate), Expires: 03/22/2025 Start: 03-22-2024 End: 03-22-2025 CBC W Auto Differential panel - Blood CBC and differential Lab Routine Encounter for long-term (current) use of medications Expected: 03/22/2024 (Approximate), Expires: 03/22/2025 [facility] Comment on above: Expected: 03/22/2024 (Approximate), Expires: 03/22/2025 Start: 03-22-2024 End: 03-22-2025 Hepatic function 2000 panel - Serum or Plasma Hepatic function panel Lab Routine Encounter for long-term (current) use of medications Expected: 03/22/2024 (Approximate), Expires: 03/22/2025 [facility] Comment on above: Expected: 03/22/2024 (Approximate), Expires: 03/22/2025 Start: 03-22-2024 End: 03-22-2025 Lipid 1996 panel - Serum or Plasma Lipid panel Lab Routine Lipid screening Expected: 03/22/2024 (Approximate), Expires: 03/22/2025 [facility] Comment on above: Expected: 03/22/2024 (Approximate), Expires: 03/22/2025 Start: 02-26-2024 Influenza vaccination Influenza Vacc ine (#1) [facility] Start: 1961 Pneumococcal Vaccine : 65+ Years (1 of 2 - PCV) Pneumococcal Vaccine: 65+ Years (1 of 2 - PCV) [facility] Start: 1955 Medicare Annual Wellness (AWV) Medicare Annual Wellness (AWV) [facility] Start: 1955 Screening for malign ant neoplasm of colon [facility] Immunizations Immunization Date Immunization Notes Care Provider Torrey phillip 05-08-2022 influenza virus vacc ine, unspecified formulation Harleen Delgadillo MD Work Phone: [facility] Payers Date Payer Category Payer Unknown [id number] 2023 Unknown [employer] [id number] 2023-Present [address] [place] [id number] 1960 Medicare [id number] 1959 Unknown [id number] 1954 Unknown [id number] 1954 Unknown [id number] Social History Date Type Detail Facility Start: 07-06-2023 End: 03-22-2024 Tobacco smoking status IAIS Smokes tobacco daily [facility] History of tobacco use Cigarette Smoker [facility] Start: 03-21-2024 End: 03-22-2024 Cigarettes smoked current (pack per day) - Reported 0.3 [facility] History of tobacco use Passive smoker [facility] Start: 07-06-2023 End: 03-22-2024 Tobacco use and exposure Smokeless tobacco non-user [facility] Start: 03-22-2024 Alcoholic beverage intake Life time non-drinker (finding) [facility] Start: 03-21-2024 End: 03-22-2024 [id number] Health Literacy [facility] How often do you nee d to have someone help you when you read instructions, pamphlets, or other written material from your doctor or pharmacy [SILS] Never [facility] Do you belong to any clubs or organizations such as jew groups, unions, fraternal or athletic groups, or school groups? Yes [facility] Are you now , , , , never or living with a partner? [facility] How often to you hav e a drink containing alcohol? 4 or more times a week [facility] How many standard dr inks containing alcohol do you have on a typical day? 1 or 2 [facility] How often do you hav e 6 or more drinks on 1 occasion? Never [facility] Do you feel stress - tense, restless, nervous, or anxious, or unable to sleep at night because your mind is troubled all the time - these days [OSQ] Not at all [facility] (I/We) worried wheth er (my/our) food would run out before (I/we) got money to buy more. Never true [facility] In the past 12 month s, was there a time when you were not able to pay the mortgage or rent on time? No [facility] Start: 1955 Sex assigned at Female [facility] Start: 12-12-2023 Gender identity Identifies as female gender (finding) [facility] Start: 12-12-2023 Sexual orientation Heterosexual (fin ding) [facility] History of Present illness Narrative 03-22-2024 Harleen Delgadillo MD - 03/22/2024 1:34 PM EDTMchandler Delgadillo MD - 03/22/2024 1:00 PM EDT Note Date & Type Note Facility 03-22-2024 History of Presen t illness Narrative Associated Problem(s): Medicare annual wellness visit, subsequent Due for labs. Declined mammogram and colonoscopy. Discussed proper diet and regular aerobic exercise. Need aerobic exercise 5-6 days a week for 30 minutes at a time. Smaller portions and limit total calories. Tetanus every 10 years. Advised not to smoke. Discussed daily Aspirin therapy. Images from the original note were not included. Subjective Patient ID: Deneen Allen is a 68 y.o. female who presents for Medicare Annual Wellness Visit Initial. Presents for medicare wellness visit. Patient feels well today. Weight up 4 pounds since last visit. Retired and not as active. Tries to stay active around house but no regular exercise. Tries to watch diet and eat healthy. Increased fruits and vegetables. Smaller portions and limits snacking. Tries to limit total daily calories. Due for labs. Due for mammogram and colonoscopy but declined. Discussed LDCT chest and declined. Review of Systems Respiratory: Negative for cough, shortness of breath and wheezing. Cardiovascular: Negative for chest pain and palpitations. Gastrointestinal: Negative for abdominal pain, diarrhea, nausea and vomiting. Genitourinary: Negative for dysuria. Objective Physical Exam Constitutional: General: She is not in acute distress. Appearance: Normal appearance. HENT: Head: Normocephalic. Right Ear: Tympanic membrane normal. Left Ear: Tympanic membrane normal. Eyes: Extraocular Movements: Extraocular movements intact. Pupils: Pupils are equal, round, and reactive to light. Cardiovascular: Rate and Rhythm: Normal rate and regular rhythm. Heart sounds: No murmur heard. No friction rub. No gallop. Pulmonary: Effort: Pulmonary effort is normal. Breath sounds: Normal breath sounds. No wheezing, rhonchi or rales. Abdominal: General: Bowel sounds are normal. There is no distension. Palpations: Abdomen is soft. Tenderness: There is no abdominal tenderness. There is no guarding or rebound. Musculoskeletal: General: No swelling or tenderness. Cervical back: Neck supple. Right lower leg: No edema. Left lower leg: No edema. Skin: Findings: No erythema or rash. Neurological: General: No focal deficit present. Mental Status: She is alert and oriented to person, place, and time. Cranial Nerves: No cranial nerve deficit. Motor: No weakness. Gait: Gait normal. Assessment/Plan Problem List Items Addressed This Visit Encounter for long-term (current) use of medications Relevant Orders Basic metabolic panel CBC and differential Hepatic function panel Lipid screening Relevant Orders Lipid panel Medicare annual wellness visit, subsequent - Primary Due for labs. Declined mammogram and colonoscopy. Discussed proper diet and regular aerobic exercise. Need aerobic exercise 5-6 days a week for 30 minutes at a time. Smaller portions and limit total calories. Tetanus every 10 years. Advised not to smoke. Discussed daily Aspirin therapy. documented in this encounter [facility] Evaluation note Note Date & Type Note Facility Evaluation note Diagnosis Medicare annual wellness visit, subsequent- Primary Lipid screening Screening for lipoid disorders Encounter for long-term (current) use of medications Encounter for long-term (current) use of other medications documented in this encounter [facility] Summary Purpose Family History No Family History Records FoundNo Family History Records Found Advance Directives No Advanced Directives Records FoundNo Advanced Directives Records Found Additional Source Comments INFORMATION SOURCE (unrecogn ized section and content) DATE CREATED AUTHOR 06/08/2021 [facility] DATE CREATED AUTHOR AUTHOR'S ORGANYASMANI ATION 07/07/2023 [facility] EPIC Reason for Visit (unrecogniz ed section and content) Reason Comments Medicare Annual Wellness Visit Initial Care Teams (unrecognized sec tion and content) Controls Design Engineer Relationship Specialty Start Date End Date Harleen Delgadillo MD [address] [place] [id number] PCP - Devoted 02/25/23 Harleen Delgadillo MD [address] [place] [id number] PCP - General Family Medicine 03/22/24 Controls Design Engineer Relationship Specialty Start Date End Date Harleen Delgadillo MD [address] [place] [id number] PCP - [facility] 02/25/23 Harleen Delgadillo MD [address] [place] [place] [phone] PCP - General Family Medicine 03/22/24 FOR RECORDS PERTAINING TO PATIENTS WHO ARE OR HAVE BEEN ENROLLED IN A CHEMICAL DEPENDENCY/SUBSTANCEABUSE PROGRAM, SOME INFORMATION MAY BE OMITTED. This clinical summary was aggregated from multiple sources. Caution should be exercised in using it in the provision of clinical care. This summary normalizes information from multiple sources, and as a consequence, information in this document may materially change the coding, format and clinical context of patient data. In addition, data may be omitted in some cases. CLINICAL DECISIONS SHOULD BE BASED ON THE PRIMARY CLINICAL RECORDS. [employer] [facility]. provides no warranty or guarantee of the accuracy or completeness of information in this document.
[2024-07-27 12:19] LABS: Influenza Virus A Antigen Negative; Influenza Virus B Antigen Negative; Internal Control Within Normal Limits; SARS-CoV-2 Ag NEGATIVE (NEGATIVE)
[2024-07-27 12:47] VITALS: BP 153/82; PULSE 79; O2SAT 93
[2024-07-27] MEDS: ALBUTEROL SULFATE 2.5 MG/3 ML VIAL NEB IH (14:13)
[2024-07-27 14:14] VITALS: PULSE 78; O2SAT 94
--- NOTE | 2024-07-27 19:56 | ED_ITS ---
HPI HPI - General Adult General Chief complaint: Upper Respiratory Infection Stated complaint: SOB LAST NIGHT Time Seen by Provider: 07/27/24 12:00 Source: patient Mode of arrival: walk-in History of Present Illness HPI narrative: Patient is a 69-year-old female who is presenting to the ER with chief complaint of cough, congestion, mild laryngitis, shortness of breath at rest and with some exertion. Patient had a 7-day prescription of Omnicef called in by her PCP Dr. Albarado for bronchitis-like symptoms that she had called into the office and he prescribed her an antibiotic over the phone, he did not see her in person. Patient states that she was on steroids last year. Patient has a long history of smoking, patient states that she smokes a few cigarettes a day still, patient states that she has smoked half a pack of cigarettes for over 50 years. Patient has no recent traveling. No chest pain or tightness. No abdominal pain nausea vomiting. No swelling in her arms or legs. at bedside. Patient is not taking any ycpy-ohr-rteqfle medication to help with sinus congestion. Patient is coughing throughout the day but more so at nighttime. No ear pain, mild sore throat. No other acute complaints. Patient has no inhalers at home, she has never used an inhaler at home of albuterol. All systems are negative except as noted/marked. All systems reviewed and otherwise negative. Nurses note and vital signs reviewed and patient is not hypoxic. General: The patient appears well and in no apparent distress. Patient is resting comfortably on cart. Patient is not toxic, lethargic, or listless Skin: Warm, dry, no pallor noted. There is no rash noted. No petechiae, purpura. Head: Normocephalic, atraumatic Eye: Normal conjunctiva, no drainage, EOMI. PERRL Ears, Nose, Mouth, and Throat: oral mucosa is moist. Bilateral TM shows no erythema, perforation or bulging to bilateral TM. Patient does show signs of mild posterior pharyngeal erythema, cobblestoning noted to the posterior pharynx. No unilateral swelling. No posterior pharyngeal exudate, petechiae. Nares patent. Mouth without vesicles. Cardiovascular: Regular Rate and Rhythm, no murmur, gallop, rub Respiratory: Patient is in no distress, no accessory muscle use, lungs are clear to auscultation, no wheezing, rales or rhonchi Back: non-tender, no CVA tenderness bilaterally to percussion. No CT LS midline pain GI: no tenderness to palpation, no masses appreciated. No rebound, guarding, or rigidity noted. No distention Musculoskeletal: Patient has full range of motion of all of the extremities, no motor, sensory, or focal neurological deficits Neurological: A&O x4, normal speech Psychiatric: Cooperative Related Data Previous Rx's ?Medication ?Instructions ?Recorded cefdinir 300 mg capsule 600 mg (2 x 300 mg) PO DAILY #20 07/05/23 caps prednisone 20 mg tablet 60 mg (3 x 20 mg) PO DAILY #12 tabs 07/05/23 albuterol sulfate 90 mcg/actuation 2 inh inhalation Q4H PRN shortness 07/27/24 aerosol inhaler of breath or wheezing 7 days #8.5 grams benzonatate 100 mg capsule 200 mg (2 x 100 mg) PO TID PRN 07/27/24 cough #20 caps dcpjacwfzxltndt-mocvgkyvwedymnz-SD 10 ml PO Q6H PRN cold symptoms 07/27/24 2 mg-30 mg-10 mg/5 mL oral syrup #200 mL (Bromfed DM) methylprednisolone 4 mg tablets in 4 mg PO DAILY 6 days #21 ea 07/27/24 a dose pack (Medrol (Cesar)) Allergies Allergy/AdvReac Type Severity Reaction Status Date / Time No Known Drug Allergies Allergy Verified 07/04/23 20:44 Opioid HPI Opioid Management Most Recent Opioid Data: No Data to Display [facility] Medical History (Updated 07/27/24 @ 14:07 by Eddie Patel MD) Hypoxia ?R09.02 - Hypoxemia (ICD-10) Community acquired pneumonia ?J18.9 - Pneumonia, unspecified organism (ICD-10) Acute infective exacerbation of chronic obstructive airway disease ?J44.1 - Chronic obstructive pulmonary disease with (acute) exacerbation (ICD-10) Cataracts, bilateral ?H26.9 - Unspecified cataract (ICD-10) Family History (Updated 07/04/23 @ 23:49 by Mecca Jang) Father Family history of diabetes mellitus Other Family history of CHF (congestive heart failure) Family history of COPD (chronic obstructive pulmonary disease) Social History (Updated 07/04/23 @ 23:51 by Mecca Jang) Within the past year, how often did you have a drink containing alcohol: monthly or less Within the past year, how many standard drinks containing alcohol did you have on a typical day: 1 or 2 Within the past year, how often did you have six or more drinks on one occasion: never Total score: 0 Score interpretation: A score less than 3 is consistent with normal alcohol consumption. 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 Highest level of school completed/degree received: high school graduate Are you now , , , , never or living with a partner: In a typical week, how many times do you talk on the telephone with family, friends, or neighbors: 3 or more times per week How often do you get together with friends or relatives: 3 or more times per week How often do you attend pentecostal or christianity services: 1-3 times per year Little interest or pleasure in doing things: not at all Feeling down, depressed, or hopeless: not at all Feel stressed/tense/nervous/anxious/difficulty sleeping: not at all Do you think of yourself as: straight/heterosexual Gender Identity: female Exam Constitutional Vital Signs, click to edit/add: Last Vital Signs Temp 97.8 F 07/27/24 11:45 Pulse 78 07/27/24 14:14 Resp 18 07/27/24 12:47 BP 153/82 H 07/27/24 12:47 Pulse Ox 94 L 07/27/24 14:14 O2 Del Method Room Air 07/27/24 14:14 Course Vital Signs Vital signs: Vital Signs Temperature 97.8 F 07/27/24 11:45 Pulse Rate 100 H 07/27/24 11:45 Respiratory Rate 20 07/27/24 11:45 Blood Pressure 174/95 H 07/27/24 11:45 Pulse Oximetry 92 L 07/27/24 11:45 Oxygen Delivery Method Room Air 07/27/24 11:45 Temperature 97.8 F 07/27/24 11:45 Pulse Rate 78 07/27/24 14:14 Respiratory Rate 18 07/27/24 12:47 Blood Pressure 153/82 H 07/27/24 12:47 Pulse Oximetry 94 L 07/27/24 14:14 Oxygen Delivery Method Room Air 07/27/24 14:14 Medical Decision Making MDM Narrative Medical decision making narrative: 50 minutes was spent at bedside speaking to patient and about all the symptomatic treatment that she can be doing amzu-qtk-hsyqvuv that she is doing nothing of. Patient was prescribed Tessalon Perles Bromfed and albuterol inhaler. Patient was given albuterol breathing treatment in the ER, and then Darius from respiratory staff showed her how to use a albuterol inhaler with a spacer. Patient will use prescribed medication along with all the tuzs-zwk-umhugwu medications discussed. Patient will call PCP and make an appointment for next or Tuesday and follow-up if she has not improved. No questions at discharge. Chest x-ray was negative, swabs are negative. Lab Data Labs: Lab Results 07/27/24 Range/Units 11:55 Influenza Type A Ag Negative Influenza Type B Ag Negative SARS-CoV-2 Ag (CV2AG) Negative (NEGATIVE) Discharge Plan Discharge Chief Complaint: Upper Respiratory Infection Clinical Impression: Bronchitis, Tobacco abuse, Laryngitis, Dyspnea Patient Disposition: Home, Self-Care Time of Disposition Decision: 14:04 Condition: Fair Mode of Transportation: Private Vehicle Prescriptions / Home Meds: New benzonatate 100 mg capsule 200 mg PO TID PRN (Reason: cough) Qty: 20 0RF methylprednisolone [Medrol (Cesar)] 4 mg tablets,dose pack 4 mg PO DAILY 6 Days Qty: 21 0RF Rx Instructions: as directed albuterol sulfate 90 mcg/actuation HFA aerosol inhaler 2 inh inhalation Q4H PRN (Reason: shortness of breath or wheezing) 7 Days Qty: 8.5 0RF uuzprwmcvkqfywr-mvbsygfkw-VO [Bromfed DM] 2-30-10 mg/5 mL syrup 10 ml PO Q6H PRN (Reason: cold symptoms) Qty: 200 0RF No Action prednisone 20 mg tablet 60 mg PO DAILY Qty: 12 0RF cefdinir 300 mg capsule 600 mg PO DAILY Qty: 20 0RF Print Language: [place] Instructions: How to Stop Smoking (ED), Laryngitis (ED), How to Use a Metered- Dose Inhaler (ED), Acute Bronchitis (ED), Dyspnea (ED) Additional Instructions: Use 2 puffs with your albuterol inhaler with your spacer every 4 hours while you are awake for the next 7 to 10 days to help with shortness of breath, cough and congestion. If you are having productive sputum after using your inhaler, that is good as we discussed because you could be improving and getting rid of mucous plugs. Make sure that you are doing Flonase every day as discussed for 7 to 10 days. Make an appointment with Dr. Albarado for next or Tuesday for follow-up Increase fluids at home, Gatorade, Powerade, or water. Alternate using DayQuil, NyQuil, and Flonase. Add Mucinex as well as needed. Alternate Tylenol and Motrin every 4 hours to help with fever control, body aches or joint pain. Use reig-kij-drfumkx vitamin C, vitamin D3, and zinc to help fight infection and help with her immune system. Referrals: Luis Albarado MD [Primary Care Provider] - 1 week Discharge Date/Time: 07/27/24 14:39
== END 2024-07-27 14:39 | disposition home or self-care (01) ==
PROVIDERS: Emergency Provider Emergency Medicine; PCP Family Medicine
DX: J40 Bronchitis, not specified as acute or chronic (principal); R06.00 Dyspnea, unspecified; J04.0 Acute laryngitis; R06.02 Shortness of breath; F17.210 Nicotine dependence, cigarettes, uncomplicated
CPT/HCPCS: 71046; 87804; 87811; 94640; 99284; 99406